=== PATIENT | male | born 2005 ===

== ENCOUNTER → 2023-07-15 | Outpatient (RCR) | payer BC | END | disposition home or self-care (01) | LOC: MKS.ESL.PT | DX: S83.512D Sprain of anterior cruciate ligament of left knee, subsequent encounter (principal); S83.222D Peripheral tear of medial meniscus, current injury, left knee, subsequent encounter; Z98.890 Other specified postprocedural states; X58.XXXD Exposure to other specified factors, subsequent encounter ==

== ENCOUNTER 2023-08-12 13:15 | Outpatient (RCR) | payer BC | END 2023-08-13 | disposition home or self-care (01) | LOC: MKS.ESL.PT | DX: S83.512D Sprain of anterior cruciate ligament of left knee, subsequent encounter (principal); S83.222D Peripheral tear of medial meniscus, current injury, left knee, subsequent encounter; Z98.890 Other specified postprocedural states; X58.XXXD Exposure to other specified factors, subsequent encounter ==